=== PATIENT | male | born 1970 | race Caucasian/White ===

== ENCOUNTER → 2020-04-05 | Outpatient (CLI) | payer OTHER ==
[2020-04-05 15:19] LABS: Basophils # (A) 0.1 k/uL (0-0.2); Basophils % (A) 1 %; Eosinophils # (A) 0.1 k/uL (0-0.7); Eosinophils % (A) 2 %; HCT 47.3 % (39.0-53.0); Lymphocytes # (A) 2.5 k/uL (1.0-4.8); Lymphocytes % (A) 38 %; MCH 29.5 pg (25.0-35.0); MCHC 33.8 g/dL (31.0-37.0); MCV 87.2 fL (80.0-100.0); Mean Platelet Volume 7.9; Monocytes # (A) 0.7 k/uL (0-1.0); Monocytes % (A) 10 %; Neutrophils # (A) 3.1 k/uL (1.3-7.7); Neutrophils % (A) 47 %; Platelet Count 242 k/uL (150-450); RBC 5.43 m/uL (4.30-5.90); RDW 12.9 % (11.5-15.5); WBC 6.5 k/uL (3.8-10.6)
[2020-04-05 15:28] LABS: Potassium 4.1 mmol/L (3.5-5.1)
== END | disposition home or self-care (01) ==
LOC: LABPAT 14:40
PROVIDERS: ATTEND Orthopaedic Surgery
DX: Z01.818 Encounter for other preprocedural examination (principal); M23.91 Unspecified internal derangement of right knee
CPT/HCPCS: 36415; 80051; 85025; 93005

== ENCOUNTER 2020-04-20 07:50 | Day surgery (SDC) | payer OTHER ==
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
[2020-04-16 17:27] VITALS: BMI 53.6
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
[2020-04-20] MEDS: LACTATED RINGERS 1,000 ML IV SCH ×2 (07:49→08:29)
[~2020-04-20 07:50] MED LIST: DEXAMETHASONE SOD PHOSPHATE 4 MG/ML 1 ML VIAL IV ONE; HYDROmorphone 0.5 MG/0.5 ML SYRINGE IVP PRN; MIDAZOLAM 2 MG/2 ML VIAL IV PRN; ONDANSETRON 4 MG/2 ML VIAL IVP ONE; SCOPOLAMINE 1.5MG/72HR PATCH TRANSDERM ONE; ceFAZolin 3 GM in SODIUM CHLORIDE 0.9% 100 ML IVPB PRN
[2020-04-20 08:07] VITALS: RESP 16
[2020-04-20] MEDS ORDERED: LIDOCAINE 1% (10MG/ML) FOR IV START INTRADERMA ONE (08:29)
[2020-04-20] MEDS ORDERED: LIDOCAINE 1% INJ 10MG/ML (20 ML MDV) ONE (09:12)
[2020-04-20] MEDS ORDERED: PROPOFOL 10 MG/ML 20 ML VIAL IV ONE (09:12)
[2020-04-20] MEDS ORDERED: HYDROmorphone (PF) 1 MG/ML ONE (09:12)
[2020-04-20] MEDS ORDERED: MIDAZOLAM 2 MG/2 ML VIAL ONE (09:12)
[2020-04-20] MEDS ORDERED: SUCCINYLCHOLINE CHLORIDE VIAL 200 MG/10 ML VIAL IV ONE (09:12)
[2020-04-20] MEDS ORDERED: fentaNYL (PF) 50 MCG/ML 2 ML AMP ONE (09:12)
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
[2020-04-20 10:12] VITALS: TEMP 96.8
[2020-04-20 10:52] VITALS: PULSE 84
[2020-04-20 11:32] VITALS: BP 127/73
== END 2020-04-20 12:07 | disposition home or self-care (01) ==
LOC: OR 07:50
PROVIDERS: ATTEND Orthopaedic Surgery
DX: S83.241A Other tear of medial meniscus, current injury, right knee, initial encounter (principal); V89.2XXA Person injured in unspecified motor-vehicle accident, traffic, initial encounter; M65.861 Other synovitis and tenosynovitis, right lower leg; I10 Essential (primary) hypertension; E78.5 Hyperlipidemia, unspecified; G47.33 Obstructive sleep apnea (adult) (pediatric); Z99.89 Dependence on other enabling machines and devices; K21.9 Gastro-esophageal reflux disease without esophagitis; Z72.0 Tobacco use; Z79.1 Long term (current) use of non-steroidal anti-inflammatories (NSAID); Z79.899 Other long term (current) drug therapy
CPT/HCPCS: 29881; 29876; J2250; J0330; J1100; J0690; J2405; J2001; J3010; J1170; J2704

== ENCOUNTER → 2021-05-13 | Outpatient (CLI) | payer OTHER ==
--- NOTE | 2021-05-14 07:14 | MR ---
EXAMINATION TYPE: MR knee LT wo con DATE OF EXAM: 05/13/2021 COMPARISON: Outside left knee x-ray March 04, 2021 HISTORY: Left knee pain. TECHNIQUE: Multiplanar, multisequence imaging of the left knee is performed without IV contrast. FINDINGS: MEDIAL MENISCUS: Medial extrusion medial meniscus on coronal images. Anterior horn is intact without tear. Some increased signal extends to the inferior articular surface posterior horn. There is a larg e cleft or absence of the central body. Patient denies prior surgery. LATERAL MENISCUS: Anterior and posterior horns are intact without tear. CRUCIATE LIGAMENTS: The anterior and posterior cruciate ligaments are intact and unremarkable. COLLATERAL LIGAMENTS: The medial collateral ligament and lateral collateral ligament complex are inta ct and unremarkable. EXTENSOR MECHANISM: Visualized quadriceps and patellar tendons are intact. EFFUSION: There is moderate size suprapatellar joint effusion. POPLITEAL CYST: No popliteal/dumont cyst. TRICOMPARTMENT SPACES: Mild tricompartment joint space loss. No significant spurring. 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 BONE MARROW SIGNAL: Some areas of increased T2 signal on posterior patellar pole at sites of cartilag inous loss. OTHER: No additional significant abnormality is appreciated. IMPRESSION: 1. Absence of central portion medial meniscus, patient denies prior surgery is suggestive of large de fect or tear. 2. Mild to moderate tricompartment degenerative changes greatest patellofemoral compartment as detail ed above. 3. Moderate-size patellar joint effusion.
== END | disposition home or self-care (01) ==
LOC: RADMRIMAIN 19:52
PROVIDERS: ATTEND Orthopaedic Surgery
DX: M25.462 Effusion, left knee (principal); M25.562 Pain in left knee

== ENCOUNTER 2022-05-02 06:16 | Day surgery (SDC) | payer OTHER ==
--- NOTE | 2022-05-01 09:03 | P.HPOR ---
History of Present Illness H&P Date: 05/01/22 Chief Complaint: Left knee pain The patient is a 51-year-old male who presents with progressive left knee pain for the past year. He notes locking and giving way. He notes it significantly limits his normal activities. He's tried previous medications along with an injection with temporary partial relief. Review of Systems As per HPI Past Medical History Past Medical History: Hyperlipidemia, Hypertension, Musculoskeletal Disorder, Sleep Apnea/CPAP/BIPAP Additional Past Medical History / Comment(s): Rt knee injury. Uses CPAP. History of Any Multi-Drug Resistant Organisms: None Reported Past Surgical History: Orthopedic Surgery Additional Past Surgical History / Comment(s): Anesthesia for MRI of brain, rt knee arthroscopy Past Anesthesia/Blood Transfusion Reactions: Motion Sickness Smoking Status: Current some day smoker - Past Family History Mother Family Medical History: No Reported History Medications and Allergies Home Medications Medication Instructions Recorded Confirmed Type Ergocalciferol [Vitamin D2 (1250 1,250 mcg PO WEEKLY 04/16/20 04/28/22 History Mcg = 75304 Iu)] Ibuprofen [Motrin Ib] 400 - 800 mg PO Q8H PRN 04/16/20 04/28/22 History Metoprolol Succinate (ER) [Toprol 50 mg PO HS 04/16/20 04/28/22 History Xl] Rosuvastatin Calcium [Crestor] 10 mg PO HS 04/16/20 04/28/22 History hydroCHLOROthiazide [Hydrodiuril] 25 mg PO HS 04/16/20 04/28/22 History Allergies Allergy/AdvReac Type Severity Reaction Status Date / Time bee venom protein (honey bee) Allergy Anaphylaxis Verified 04/28/22 09:59 Physical Examination - Knee left Appearance: effusion Effusion grade: grade 2 Tenderness with palpation: medial Pain: throughout ROM Gait: limping ROM: extension: -10 degrees ROM: flexion: 110 degrees Strength: extension: 5/5 Strength: flexion: 5/5 Meniscal tests: medial meniscal tests: positive, medial joint line pain: positive Results The patient is a well-developed well-nourished male approximately 5 foot 8, 275 pounds of endomorphic habitus. HEENT exam is nonfocal, neck supple. He has painless passive motion of the left hip. Straight leg raise is negative. His distal neurovascular appears intact left lower extremity. - Diagnostic results Knee MRI: image reviewed (MRI of the left knee shows a posterior medial meniscal tear with a large defect.) Assessment and Plan Assessment: Left knee internal derangementsymptomatic medial meniscal tear Plan: I talked to the patient at length regarding his condition along with treatment options. He's quite symptomatic having pain and mechanical symptoms that limited him despite previous conservative measures. After thorough discussion he opted to proceed with surgery. We'll plan to proceed with arthroscopic evaluation with probable partial medial meniscectomy.
[~2022-05-02 06:16] MED LIST changes: -HYDROmorphone 0.5 MG/0.5 ML SYRINGE IVP PRN; +LACTATED RINGERS 1,000 ML IV SCH; +LIDOCAINE 1% (10MG/ML) FOR IV START INTRADERMA PRN; -MIDAZOLAM 2 MG/2 ML VIAL IV PRN; -SCOPOLAMINE 1.5MG/72HR PATCH TRANSDERM ONE
[2022-05-02] MEDS ORDERED: HYDROmorphone 0.5 MG/0.5 ML SYRINGE IVP PRN (07:00)
[2022-05-02] MEDS ORDERED: PROPOFOL 10 MG/ML 20 ML VIAL IV ONE (08:02)
[2022-05-02] MEDS ORDERED: EPINEPHrine (PF) 1 ML in SODIUM CHLORIDE 0.9% IRRIGATIO 3,000 ML IRRIGATION ONE ×4 (08:02)
[2022-05-02] MEDS ORDERED: KETOROLAC 15 MG/ML 1 ML VIAL ONE (08:02)
[2022-05-02] MEDS ORDERED: LIDOCAINE 2% INJ 20 MG/ML (2 ML VIAL) ONE (08:02)
[2022-05-02] MEDS ORDERED: MIDAZOLAM 2 MG/2 ML VIAL ONE (08:02)
[2022-05-02] MEDS ORDERED: fentaNYL (PF) 50 MCG/ML 2 ML AMP ONE (08:02)
[2022-05-02] MEDS ORDERED: LACTATED RINGERS 1,000 ML IV ONE (08:45)
--- NOTE | 2022-05-02 08:46 | P.OP ---
Date of Procedure: 05/02/22 Preoperative Diagnosis: Left knee internal derangement Postoperative Diagnosis: Left knee posterior medial meniscal tear Procedure(s) Performed: Left knee arthroscopic partial medial meniscectomy [facility] Surgeon: Jose Parker Estimated Blood Loss (ml): 10 Pathology: none sent Condition: stable Disposition: PACU Indications for Procedure: The patient's a 52-year-old male who presents with progressive left knee pain and mechanical symptoms despite conservative measures. A discussion of the risks and benefits of operative intervention versus continued conservative measures was made with patient. He opted to proceed with surgery. Operative risks to include infection, neurovascular injury, development of blood clots, possible incomplete resolution of symptoms, possible worsening symptoms and need for subsequent procedures was discussed. Informed consent was obtained. Operative Findings: As below Description of Procedure: The patient was brought to the operating room, and after induction of general anesthesia examined the left knee. Collaterals were stable, Julian was negative, and posterior drawer was negative. The left lower extremity was prepped and draped in a normal fashion. A superior lateral portal was made through a 3 mm skin incision superior and lateral to the patella. This was used for outflow. A lateral portal was made through a 5 mm vertical skin incision lateral to the patella tendon above the joint line. Diagnostic arthroscopy was performed. On inspection of the medial compartment, a complex oblique tear involving the posterior horn of the medial meniscus was noted in the white-red junction. This was not amenable to repair. Corresponding grade 2/3 chondral changes were noted involving the distal lateral portion of the medial femoral condyle. The medial meniscus was debrided back to stable base with straight baskets and a motorized shaver. The remaining medial meniscus was stable and intact. On inspection of the notch, the anterior cruciate ligament appeared to be intact. On inspection of the lateral compartment, no significant meniscal or cartilage pathology was noted. On inspection of the patellofemoral articulation, there was mild chondral fibrillation however no loose chondral fragments. The gutters were clear debris. The knee was then thoroughly irrigated. The portals were closed with Steri-Strips. A sterile dressing was applied in addition to a compression stocking. The patient was awoken from general anesthesia and transferred to recovery room in good condition. Blood loss was estimated at 10 mL. No complications were incurred.
[2022-05-02 08:53] VITALS: TEMP 96.9
[2022-05-02 09:26] VITALS: RESP 20
[2022-05-02] MEDS ORDERED: HYDROcodone/APAP 5-325MG 1 EACH TAB ONE (09:34)
[2022-05-02] MEDS ORDERED: HYDROcodone/APAP 5-325MG 1 EACH TAB PO ONE (09:36)
[2022-05-02 10:02] VITALS: BP 119/76; PULSE 78
== END 2022-05-02 10:15 | disposition home or self-care (01) ==
LOC: OR 06:16
PROVIDERS: ATTEND Orthopaedic Surgery
DX: S83.232A Complex tear of medial meniscus, current injury, left knee, initial encounter (principal); M24.112 Other articular cartilage disorders, left shoulder; I10 Essential (primary) hypertension; E78.5 Hyperlipidemia, unspecified; G47.33 Obstructive sleep apnea (adult) (pediatric); Z99.89 Dependence on other enabling machines and devices; K21.9 Gastro-esophageal reflux disease without esophagitis; X58.XXXA Exposure to other specified factors, initial encounter; Z98.890 Other specified postprocedural states; F17.290 Nicotine dependence, other tobacco product, uncomplicated; Z79.1 Long term (current) use of non-steroidal anti-inflammatories (NSAID); Z79.899 Other long term (current) drug therapy; Z91.030 Bee allergy status; M79.9 Soft tissue disorder, unspecified
CPT/HCPCS: 29881; J2250; J1100; J0690; J2405; J0171; J3010; J1885; J2704; J1170; J2001